=== PATIENT | female | born 1940 | race Caucasian/White ===

== ENCOUNTER → 2016-05-21 | Outpatient (CLI) | payer MEDICARE ==
[~2016-05-21] MED LIST: ASPI-621 PO; ASPI-650 PO; ATOR80TA75 PO; BUFFERIN PO; CALC-46 PO; CALC-500 PO; CLOP75TA PO; FAMO20TA7 PO; LATA2.5D2 EACHEYE; LEVO50TA PO; MULT-717 PO; NEBI5TAB2 PO; POTA20TA14 PO; TOLT4CAP PO; TRIA1CAP PO
[2016-05-21 12:58] LABS: HEMOGLOBIN 13.8 g/dL (11.7-16.4)
== END | disposition home or self-care (01) ==
LOC: CFH 10:26
PROVIDERS: ATTEND Physician Assistant Medical
DX: C44.310 Basal cell carcinoma of skin of unspecified parts of face (principal); C43.39 Malignant melanoma of other parts of face; D64.9 Anemia, unspecified; E03.9 Hypothyroidism, unspecified
CPT/HCPCS: 36415; 85025

== ENCOUNTER → 2016-05-22 | Outpatient (CLI) | payer MEDICARE | END | disposition home or self-care (01) | LOC: LAB 11:11 | PROVIDERS: ATTEND Internal Medicine | DX: R31.9 Hematuria, unspecified (principal) | CPT/HCPCS: 87086 ==

== ENCOUNTER → 2016-05-24 | Outpatient (CLI) | payer MEDICARE | END | disposition home or self-care (01) | LOC: CFH 10:24 | PROVIDERS: ATTEND Registered Nurse | DX: R94.5 Abnormal results of liver function studies (principal); N28.1 Cyst of kidney, acquired | CPT/HCPCS: 76700 ==

== ENCOUNTER → 2016-07-11 | Outpatient (CLI) | payer MEDICARE | END | disposition home or self-care (01) | LOC: CFH 15:05 | PROVIDERS: ATTEND Internal Medicine | DX: J84.10 Pulmonary fibrosis, unspecified (principal); J98.11 Atelectasis; K44.9 Diaphragmatic hernia without obstruction or gangrene | CPT/HCPCS: 71250 ==

== ENCOUNTER 2016-08-21 09:32 | Observation (INO) | payer MEDICARE ==
[~2016-08-21] VITALS: Ht 160 cm; Wt 99.6 kg
[2016-08-21] MEDS: SODIUM CHLORIDE 0.9% 1,000 ML IV SCH ×2 (10:11→17:48)
[2016-08-21] MEDS ORDERED: MIDAZOLAM 1 MG/ML, 5ML ONE (10:13)
[2016-08-21] MEDS ORDERED: FENTANYL PF 100 MCG/2ML ONE (10:14)
[2016-08-21] MEDS ORDERED: VANCOMYCIN PMX 1GM/200ML 200 ML ONE (10:14)
[2016-08-21] MEDS ORDERED: LIDOCAINE 2%, 20ML ONE (10:14)
[2016-08-21] MEDS ORDERED: VANCOMYCIN 500 MG ONE (10:14)
[2016-08-21] MEDS ORDERED: FAMO20TA37 PO (10:27)
[2016-08-21] MEDS ORDERED: AMIO100T4 PO (10:27)
[2016-08-21] MEDS ORDERED: APIX5TAB PO (10:27)
[2016-08-21] MEDS ORDERED: PRAV20TA2 PO (10:27)
[2016-08-21] MEDS ORDERED: TIOT18CA INH (10:27)
[2016-08-21] MEDS ORDERED: LISI-167 PO (10:27)
[2016-08-21] MEDS ORDERED: ASPI-515 PO (10:27)
[2016-08-21] MEDS ORDERED: VANCOMYCIN PMX 1GM/200ML 200 ML IVPB SCH (10:30)
[2016-08-21 10:39] LABS: BLOOD UREA NITROGEN 18 mg/dL (7-18)
[2016-08-21] MEDS ORDERED: HYDROcodone/APAP 5/325 TABLET PO PRN (12:00)
[2016-08-21 14:00] VITALS: BP 156/84
[2016-08-21 15:15] VITALS: BP 151/81
[2016-08-21 19:01] VITALS: BP 144/75
[2016-08-21] MEDS ORDERED: FAMOTIDINE 20 MG TABLET PO SCH ×2 (21:00)
[2016-08-21] MEDS ORDERED: PRAVASTATIN 20 MG TABLET PO SCH (21:00)
[2016-08-21] MEDS ORDERED: LATANOPROST OPHTH 0.005%, 2.5ML EACHEYE SCH (21:00)
[2016-08-21] MEDS: APIXABAN 5 MG TABLET PO SCH (21:48)
[2016-08-21] MEDS: LISINOPRIL 10 MG TABLET PO SCH (21:49)
[2016-08-21] MEDS: SODIUM CHLORIDE FLUSH 10ML SYR IVF SCH (21:50)
[2016-08-21] MEDS ORDERED: VANCOMYCIN PMX 1GM/200ML 200 ML IVPB ONE (22:30)
[2016-08-22 02:01] VITALS: BP 176/76
[2016-08-22] MEDS: SODIUM CHLORIDE 0.9% 1,000 ML IV SCH ×2 (02:11→07:47)
[2016-08-22 02:24] VITALS: BP 155/77
[2016-08-22 07:27] VITALS: BP 161/84
[2016-08-22] MEDS ORDERED: HYDR-3240 PO (07:59)
[2016-08-22] MEDS ORDERED: LISI-170 PO (07:59)
[2016-08-22] MEDS ORDERED: LEVOTHYROXINE 88 MCG TABLET PO SCH (09:00)
[2016-08-22] MEDS ORDERED: ASPIRIN 81 MG TABLET EC PO SCH (09:00)
[2016-08-22] MEDS ORDERED: TOLTERODINE LA 4MG CAP.ER.24H PO SCH (09:00)
[2016-08-22] MEDS ORDERED: AMIODARONE 200 MG TABLET PO SCH (09:00)
[2016-08-22] MEDS: SODIUM CHLORIDE FLUSH 10ML SYR IVF SCH (09:00)
[2016-08-22] MEDS ORDERED: TEMPLATE NON-FORMULARY MED. (Tiotropium Bromide** (Spiriva**) 18 MCG) INH SCH (09:00)
[2016-08-22] MEDS: LISINOPRIL 10 MG TABLET PO SCH (09:35)
[2016-08-22] MEDS: APIXABAN 5 MG TABLET PO SCH (09:35)
== END 2016-08-22 11:33 | disposition home or self-care (01) ==
LOC: CACL 09:32 → 5SO 11:49 → CACL 12:33 → DCLOUNGE 08-22 10:49
PROVIDERS: ADMIT Internal Medicine Cardiovascular Disease; ATTEND Internal Medicine Cardiovascular Disease
DX: I49.5 Sick sinus syndrome (principal); I48.0 Paroxysmal atrial fibrillation; I50.32 Chronic diastolic (congestive) heart failure; I11.0 Hypertensive heart disease with heart failure; I25.10 Atherosclerotic heart disease of native coronary artery without angina pectoris; R94.31 Abnormal electrocardiogram [ECG] [EKG]; E03.9 Hypothyroidism, unspecified; I35.1 Nonrheumatic aortic (valve) insufficiency; I34.0 Nonrheumatic mitral (valve) insufficiency; E78.5 Hyperlipidemia, unspecified; R09.02 Hypoxemia; D64.9 Anemia, unspecified; E66.9 Obesity, unspecified; Z72.0 Tobacco use
CPT/HCPCS: 33208; 36005; 36415; 71010; 80048; 85025; 85610; 96365; 99156; 99157; C1779; C1785; C1892; G0378; J2250; J3010; J3370; J3490; Q9967

== ENCOUNTER 2018-09-16 10:45 | Outpatient (CLI) | payer MEDICARE | END 2018-09-16 23:59 | disposition home or self-care (01) | LOC: CFH 10:45 | PROVIDERS: ATTEND Internal Medicine Cardiovascular Disease | DX: M16.11 Unilateral primary osteoarthritis, right hip (principal); M47.816 Spondylosis without myelopathy or radiculopathy, lumbar region; M40.294 Other kyphosis, thoracic region; K44.9 Diaphragmatic hernia without obstruction or gangrene; M89.9 Disorder of bone, unspecified; N95.1 Menopausal and female climacteric states; E03.9 Hypothyroidism, unspecified; E78.5 Hyperlipidemia, unspecified; I11.0 Hypertensive heart disease with heart failure; I25.10 Atherosclerotic heart disease of native coronary artery without angina pectoris; I34.0 Nonrheumatic mitral (valve) insufficiency; I35.1 Nonrheumatic aortic (valve) insufficiency; I48.0 Paroxysmal atrial fibrillation; I50.32 Chronic diastolic (congestive) heart failure; Z79.01 Long term (current) use of anticoagulants; Z95.0 Presence of cardiac pacemaker | CPT/HCPCS: 71046 ==

== ENCOUNTER 2018-12-28 12:41 | Outpatient (CLI) | payer MEDICARE ==
[~2018-12-28 12:41] MED LIST changes: +AMIO100T4 PO; +APIX5TAB PO; +ASPI-515 PO; -ASPI-621 PO; +ASPI81TA45 PO; +ATOR-2 PO; -ATOR80TA75 PO; +FAMO20TA37 PO; +HYDR-3240 PO; +LISI-167 PO; +LISI-170 PO; -NEBI5TAB2 PO; +NEBI5TAB3 PO; +PRAV20TA2 PO; +TIOT18CA INH
== END 2018-12-28 23:59 | disposition home or self-care (01) ==
LOC: CFH 12:41
PROVIDERS: ATTEND Internal Medicine
DX: M85.88 Other specified disorders of bone density and structure, other site (principal); Z85.820 Personal history of malignant melanoma of skin; Z82.49 Family history of ischemic heart disease and other diseases of the circulatory system
CPT/HCPCS: 77080

== ENCOUNTER 2020-08-15 14:37 | Emergency (ER) | payer MEDICARE ==
[~2020-08-15] VITALS: Ht 154.9 cm; Wt 97.4 kg
[~2020-08-15 14:37] MED LIST changes: +ASPI-1026 PO; -ASPI-515 PO; -ASPI-650 PO; +ASPI-963 PO; +HYDR-2214 PO; -HYDR-3240 PO
[2020-08-15 15:27] LABS: MEAN CORPUSCULAR HEMOGLOBIN 28.1 pg (27.0-34.8); MEAN CORPUSCULAR HGB CONC 33.3 g/dL (32.4-35.8); MEAN PLATELET VOLUME 8.4 fL (7.4-10.4); PLATELET COUNT 219 x10^3/uL (130-400); RED BLOOD COUNT 5.16 x10^6/uL (3.82-5.3); RED CELL DISTRIBUTION WIDTH 16.1 % (9.6-15.2)
[2020-08-15 15:38] LABS: ALANINE AMINOTRANSFERASE 30 U/L (12-78); ALBUMIN 3.8 g/dL (3.4-5.0); ANION GAP 6 mmol/L (5-15); CALCIUM 8.9 mg/dL (8.5-10.1); CHLORIDE 108 mmol/L (98-107); CREATININE 1.26 mg/dL (0.55-1.02)
[2020-08-15 15:40] LABS: ALKALINE PHOSPHATASE 97 U/L (45-117); BILIRUBIN,TOTAL 0.6 mg/dL (0.2-1.0); TOTAL PROTEIN 7.4 g/dL (6.4-8.2)
[2020-08-15 16:00] LABS: BASOS#(MANUAL) 0.08 x10^3/uL (0-0.1); BASOS% (MANUAL) 1 % (0-1); EOS#(MANUAL) 0.08 x10^3/uL (0.0-0.4); EOS% (MANUAL) 1 % (1-7); LYMPH#(MANUAL) 1.03 x10^3/uL (1-3.4); LYMPHS% (MANUAL) 13 % (22-44); MONOS#(MANUAL) 0.55 x10^3/uL (0.3-2.7); MONOS% (MANUAL) 7 % (2-9); SEG#(MANUAL) 6.16 x10^3/uL (1.8-6.8); SEGS% (MANUAL) 78 % (42-75)
[2020-08-15 16:01] LABS: <PLATELET ESTIMATE> ADEQUATE; <PLT MORPHOLOGY> NORMAL PLT MORPH; ANISOCYTOSIS 1+; MICROCYTOSIS 1+
--- NOTE | 2020-08-15 19:01 | NUR ---
ASSUMED CARE OF PATIENT. PATIENT REPORTS RIGHT ARM TINGLING, NUMBNESS ON AND OFF X1 MONTH. VS STABLE. NO ACUTE DISTRESS NOTED. PT IS ON HER 3L NC PER BASELINE. CALL LIGHT IN PLACE. AT BEDSIDE. WILL CONTINUE TO MONITOR.
--- NOTE | 2020-08-15 19:21 | NUR ---
HANG Dumont, CLIMATOLOGIST IN ROOM
--- NOTE | 2020-08-15 19:41 | NUR ---
DR PELAYO IN ROOM
[2020-08-15 20:16] VITALS: BP 147/52
== END 2020-08-15 20:22 | disposition home or self-care (01) ==
LOC: ED 20:01
DX: R20.2 Paresthesia of skin (principal); R00.0 Tachycardia, unspecified; I11.0 Hypertensive heart disease with heart failure; I50.9 Heart failure, unspecified; I48.91 Unspecified atrial fibrillation; Z86.711 Personal history of pulmonary embolism
CPT/HCPCS: 36415; 71045; 80053; 85025; 93005; 99285